=== PATIENT | male | born 1950 | race Caucasian/White ===

== ENCOUNTER 2024-04-03 13:50 | Inpatient (IN) | payer MEDICARE ==
[2024-04-03] MEDS: ACETAMINOPHEN TAB 500 MG TAB PO STA (15:25)
[2024-04-03] MEDS: SODIUM CHLORIDE 0.9% 500 ML 500 ML IV STA (15:38)
--- NOTE | 2024-04-03 15:41 | ED ---
Male Urogenital HPI - General Chief complaint: Urogenital Stated complaint: bleeding from groin Time Seen by Provider: 04/03/24 15:37 Source: patient, family, RN notes reviewed Mode of arrival: wheelchair Limitations: no limitations - History of Present Illness Initial comments: 73-year-old male presenting for right leg infection. States he underwent biopsy of right inguinal lymph nodes as well as right popliteal space at the time of a heel cancer removal surgery. This was performed at [facility]. States since the surgery, he has had increasing pain and redness at the site of biopsy in the right inguinal area. Last night, he noticed bleeding and drainage from the incision site. He also reports subjective chills yesterday. Denies fever, vomiting. History of hypertension, no other health conditions. - Related Data Allergies Allergy/AdvReac Type Severity Reaction Status Date / Time latex Allergy Unknown Verified 04/03/24 13:54 Review of Systems ROS Statement: Those systems with pertinent positive or pertinent negative responses have been documented in the HPI. ROS Other: All systems not noted in ROS Statement are negative. Past Medical History Past Medical History: Hypertension Past Surgical History: Hernia Repair Smoking Status: Never smoker Past Alcohol Use History: Rare Past Drug Use History: None Reported General Exam Limitations: no limitations General appearance: alert, in no apparent distress Right Hip exam: Present: normal inspection, full ROM. Absent: tenderness, swelling Upper Leg exam: Present: full ROM, tenderness, erythema. Absent: normal inspection (Incision site just inferior to right inguinal area is tender with active clear drainage with surrounding erythema and induration), swelling Knee exam: Present: normal inspection, full ROM. Absent: tenderness, swelling Lower Leg exam: Present: normal inspection, full ROM. Absent: tenderness, swelling Ankle exam: Present: normal inspection, full ROM. Absent: tenderness, swelling Foot/Toe exam: Present: normal inspection, full ROM. Absent: tenderness, swelling Neurovascular tendon exam: Present: no vascular compromise. Absent: pulse defic it, abnormal cap refill, sensory deficit Neurological exam: Present: alert, oriented X3 Psychiatric exam: Present: normal affect, normal mood Skin exam: Present: warm, dry, intact, normal color. Absent: rash Course Vital Signs 04/03/24 04/03/24 04/03/24 13:54 15:18 17:19 Temperature 98.1 F 99.2 F 98.9 F Pulse Rate 81 72 75 Respiratory 18 16 17 Rate Blood Pressure 109/71 114/73 119/66 O2 Sat by Pulse 96 95 96 Oximetry 04/03/24 18:27 Temperature 99.1 F Pulse Rate 71 Respiratory 24 Rate Blood Pressure 108/74 O2 Sat by Pulse 94 L Oximetry Medical Decision Making - Medical Decision Making Was pt. sent in by a medical professional or institution (, PA, SUSTAINABILITY DIRECTOR, urgent care, hospital, or skilled nursing...) When possible be specific @ -No Did you speak to anyone other than the patient for history (EMS, parent, family, police, friend...)? What history was obtained from this source @ -No Did you review nursing and triage notes (agree or disagree)? Why? @ -I reviewed and agree with nursing and triage notes Were old charts reviewed (outside hosp., previous admission, EMS record, old EKG, old radiological studies, urgent care reports/EKG's, skilled nursing records)? Report findings @ -No old charts were reviewed Differential Diagnosis (chest pain, altered mental status, abdominal pain women, abdominal pain men, vaginal bleeding, weakness, fever, dyspnea, syncope, headache, dizziness, GI bleed, back pain, seizure, CVA, palpatations, mental health, musculoskeletal)? @ -Differential Musculoskeletal Muscular strain, contusion, ligament sprain, fracture, arthritis, septic arthritis, bursitis, cellulitis, muscle spasm, nerve compression, DVT, arterial occlusion, herpes zoster, electrolyte abnormality, tumor.... This is not meant to be in all inclusive list EKG interpreted by me (3pts min.). @ -None X-rays interpreted by me (1pt min.). @ -None done CT interpreted by me (1pt min.). @ -CT femur reveals no acute osseous abnormality, phlegmon right anterior thigh, no abscess formation at this time U/S interpreted by me (1pt. min.). @ -None done What testing was considered but not performed or refused? (CT, X-rays, U/S, labs)? Why? @ -None What meds were considered but not given or refused? Why? @ -None Did you discuss the management of the patient with other professionals (professionals i.e. , AAMIR, SUSTAINABILITY DIRECTOR, lab, RT, psych nurse, director social service, policy loan calculator, teacher, zoology technical officer, hospice case manager)? Give summary @ -I spoke with Jeanette from [facility] who accepts admission for cellulitis with ID consult Was smoking cessation discussed for >3mins.? @ -No Was critical care preformed (if so, how long)? @ -No Were there social determinants of health that impacted care today? How? (Homelessness, low income, unemployed, alcoholism, drug addiction, transportation, low edu. Level, literacy, decrease access to med. care, detention, rehab)? @ -No Was there de-escalation of care discussed even if they declined (Discuss DNR or withdrawal of care, Hospice)? DNR status @ -No What co-morbidities impacted this encounter? (DM, HTN, Smoking, COPD, CAD, Cancer, CVA, ARF, Chemo, Hep., AIDS, mental health diagnosis, sleep apnea, morbid obesity)? @ -None Was patient admitted / discharged? Hospital course, mention meds given and route, prescriptions, significant lab abnormalities, going to OR and other pertinent info. @ - admitted. 73-year-old male presenting for right leg infection. Patient has been having increased redness, pain, and drainage at site of lymph node biopsy last month. Biopsy was done 12-16. Vital signs are within acceptable limits. Incision site right proximal leg erythematous, tender, with purulent drainage and surrounding erythema. Neurovascularly intact. Patient was provided with IV fluids and Tylenol. Blood cultures taken. Lab work remarkable for leukocytosis of 22, CRP 29. CT right femur negative for acute process. I spoke with Jeanette from [facility] who accepts admission for cellulitis with ID consult. Wound culture was taken and patient was started on IV antibiotics. Case was discussed with my ED attending Dr. Russell. Undiagnosed new problem with uncertain prognosis? @ -No Drug Therapy requiring intensive monitoring for toxicity (Heparin, Nitro, Insulin, Cardizem)? @ -No Were any procedures done? @ -No Diagnosis/symptom? @ -Right leg cellulitis Acute, or Chronic, or Acute on Chronic? @ -Acute Uncomplicated (without systemic symptoms) or Complicated (systemic symptoms)? @ -uncomplicated Side effects of treatment? @ -No Exacerbation, Progression, or Severe Exacerbation? @ -No Poses a threat to life or bodily function? How? (Chest pain, [place], [place], pneumonia, PE, COPD, DKA, ARF, appy, cholecystitis, CVA, Diverticulitis, Homicidal, Suicid al, threat to staff... and all critical care pts) @ -Possibly - Lab Data Result diagrams: 04/03/24 15:30 04/03/24 15:30 Lab Results 04/03/24 04/03/24 04/03/24 Range/Units 15:30 15:30 15:30 WBC 22.1 H (3.8-10.6) k/uL RBC 4.73 (4.30-5.90) m/uL Hgb 14.5 (13.0-17.5) gm/dL Hct 41.5 (39.0-53.0) % MCV 87.8 (80.0-100.0) fL MCH 30.6 (25.0-35.0) pg MCHC 34.9 (31.0-37.0) g/dL RDW 12.3 (11.5-15.5) % Plt Count 271 (150-450) k/uL MPV 8.0 Neutrophils % 86 % Lymphocytes % 7 % Monocytes % 5 % Eosinophils % 0 % Basophils % 0 % Neutrophils # 19.0 H (1.3-7.7) k/uL Lymphocytes # 1.6 (1.0-4.8) k/uL Monocytes # 1.2 H (0-1.0) k/uL Eosinophils # 0.1 (0-0.7) k/uL Basophils # 0.1 (0-0.2) k/uL Sodium 139 (137-145) mmol/L Potassium 3.7 (3.5-5.1) mmol/L Chloride 102 (98-107) mmol/L Carbon Dioxide 28 (22-30) mmol/L Anion Gap 9 mmol/L BUN 28 H (9-20) mg/dL Creatinine 0.91 (0.66-1.25) mg/dL Est GFR (CKD-EPI)AfAm >90 (>60 ml/min/1.73 sqM) Est GFR (CKD-EPI)NonAf 83 (>60 ml/min/1.73 sqM) Glucose 81 (74-99) mg/dL Plasma Lactic Acid Que 1.7 (0.7-2.0) mmol/L Calcium 8.7 (8.4-10.2) mg/dL Total Bilirubin 2.3 H (0.2-1.3) mg/dL AST 32 (17-59) U/L ALT 20 (4-49) U/L Alkaline Phosphatase 87 (38-126) U/L C-Reactive Protein 29.0 H (<1.0) mg/dL Total Protein 6.9 (6.3-8.2) g/dL Albumin 3.9 (3.5-5.0) g/dL Disposition Clinical Impression: Cellulitis of right leg Disposition: ADMITTED IP TO THIS HOSP Referrals: Robel Lewis MD [Primary Care Provider] - 1-2 days Time of Disposition: 19:28
[2024-04-03 16:01] LABS: Basophils # (A) 0.1 k/uL (0-0.2); Basophils % (A) 0 %; Eosinophils # (A) 0.1 k/uL (0-0.7); Eosinophils % (A) 0 %; HCT 41.5 % (39.0-53.0); HGB 14.5 gm/dL (13.0-17.5); Lymphocytes # (A) 1.6 k/uL (1.0-4.8); Lymphocytes % (A) 7 %; MCH 30.6 pg (25.0-35.0); MCHC 34.9 g/dL (31.0-37.0); MCV 87.8 fL (80.0-100.0); Monocytes # (A) 1.2 k/uL (0-1.0); Monocytes % (A) 5 %; Neutrophils % (A) 86 %; Platelet Count 271 k/uL (150-450); RBC 4.73 m/uL (4.30-5.90); RDW 12.3 % (11.5-15.5); WBC 22.1 k/uL (3.8-10.6)
[2024-04-03 16:12] LABS: ALT 20 U/L (4-49); AST 32 U/L (17-59); African American GFR (CKD) >90 (>60 ml/min/1.73 sqM); Albumin 3.9 g/dL (3.5-5.0); Alkaline Phosphatase 87 U/L (38-126); Anion Gap 9 mmol/L; Blood Urea Nitrogen 28 mg/dL (9-20); Calcium 8.7 mg/dL (8.4-10.2); Carbon Dioxide 28 mmol/L (22-30); Chloride 102 mmol/L (98-107); Glucose 81 mg/dL (74-99); Non-African American GFR(CKD) 83 (>60 ml/min/1.73 sqM); Potassium 3.7 mmol/L (3.5-5.1); Sodium 139 mmol/L (137-145); Total Bilirubin 2.3 mg/dL (0.2-1.3); Total Protein 6.9 g/dL (6.3-8.2)
--- NOTE | 2024-04-03 18:36 | CT ---
EXAMINATION TYPE: CT femur RT w con DATE OF EXAM: 04/03/2024 5:49 PM COMPARISON: None. CLINICAL INDICATION: Male, 73 years old with history of abscess, Biopsy done to right groin x 3 weeks ago, recent drainage/infection. TECHNIQUE: Contrast used:100 mL of Isovue 300 with IV Contrast, (none if empty) Oral contrast used: (none if empty) Images were obtained at 3 mm thick sections. Reconstructed images in the coronal and sagittal plane a re reviewed. Three-D reconstructed images performed separate computer are reviewed FINDINGS: There is narrowing of the right hip joint space compatible with moderate degenerative changes. Mild d egenerative changes are at the right knee joint space. No acute fractures or dislocations evident. Periumbilical hernia containing mesenteric fat is evident. The opening is 1.6 cm. Surgical sutures in the bilateral inguinal regions. There are some mildly prominent lymph nodes within the right inguina l region. Increased stranding is within the right inguinal region subcutaneous tissue. There is a sma ll opening along the cutaneous surface anteriorly. No underlying abscess is evident. Phlegmon however is not entirely excluded. IMPRESSION: 1. NO ACUTE OSSEOUS ABNORMALITY RIGHT FEMUR. 2. PHLEGMON RIGHT ANTERIOR THIGH. NO ABSCESS FORMATION IDENTIFIED AT THIS TIME. [facility], , 04/03/2024 6:34 PM
[2024-04-03] MEDS ORDERED: NALOXONE 0.4 MG/ML 1 ML VIAL IV PRN (18:58)
[2024-04-03] MEDS ORDERED: KETOROLAC 15 MG/ML 1 ML VIAL IVP PRN (18:58)
[2024-04-03] MEDS ORDERED: ACETAMINOPHEN TAB 325 MG TAB PO PRN (18:58)
[2024-04-03] MEDS ORDERED: ONDANSETRON 4 MG/2 ML VIAL IVP PRN (18:58)
[2024-04-03] MEDS ORDERED: VANCOMYCIN IV PER PHARMACY 1 EACH MISC MISCELLANE PRN (19:03)
[2024-04-03] MEDS: SODIUM CHLORIDE 0.9% 1,000 ML IV SCH (19:28)
[2024-04-03] MEDS: CEFEPIME 2 GM in SODIUM CHLORIDE 0.9% 100 ML IVPB STA (19:29)
[2024-04-03] MEDS: VANCOMYCIN 1,500 MG in SODIUM CHLORIDE 0.9% 500 ML 500 ML IVPB ONE (20:30)
[2024-04-04 07:36] LABS: African American GFR (CKD) >90 (>60 ml/min/1.73 sqM); Non-African American GFR(CKD) >90 (>60 ml/min/1.73 sqM)
[2024-04-04] MEDS: VANCOMYCIN 1,250 MG in SODIUM CHLORIDE 0.9% 250 ML IVPB SCH (07:59)
--- NOTE | 2024-04-04 14:12 | P.HPIM ---
History of Present Illness H&P Date: 04/04/24 Chief Complaint: Cellulitis of the right leg Patient is a 73-year-old male with hypertension presented with right leg infection. Per ED note, patient recently underwent biopsy of right inguinal lymph nodes as well as right popliteal space at the time of a heel cancer remova l surgery. This was performed at [facility]. Patient was seen at bedside. He reports that he underwent a biopsy of right inguinal lymph node at the time of her heel cancer removal surgery on March 09, 2024. Subsequently started developing swelling, erythema around the right inguinal lymph node which did not get better over the past few weeks. This made the patient to come to [facility] ED for evaluation. Patient did report noticing fever and chills over the past few weeks along with sweating. He also reported drainage from the right leg lesion that started 3 days ago. He also reported some urinary incontinence over the past few weeks but this all resolved today when he came into the hospital. He denies any chest pain, shortness of breath, nausea, vomiting, diarrhea, constipation, belly pain, bowel incontinence, lower extremity swelling. ED documentation reviewed. In the ED patient was treated with Tylenol 1000 mg x 1, half bolus of normal saline, cefepime 2 g IV x 1, vancomycin 1500 mg IV x 1 Vitals on admission temperature 98.8, pulse rate 82, respiratory rate 15, blood pressure 111/61, O2 sat 93% on room air CT of the right femur with contrast shows no acute osseous abnormality of the right femur. Phlegmon noted on the right anterior thigh. No abscess formation identified at this time. Labs on admission show WBC 22.1, hemoglobin 14.5, hematocrit 41.5, platelets 271, neutrophils 19, sodium 139, potassium 3.7, chloride 102, carbon dioxide 28, BUN 28, creatinine 0.69, total bili 2.3, CRP 29 Review of systems: Pertinent positives and negatives as discussed in HPI, a complete review of systems was performed and all other systems are negative. PMH: Hypertension PSH: Hernia repair FMH: No pertinent family history Allergies: Latex Social history: Tobacco: Never smoker Alcohol: No alcohol use Recreational drugs: No drug use Travel: No travel history Sick contacts: No sick contacts Physical examination: Vital signs reviewed General: nontoxic, no distress, appears at stated age Derm: warm, dry, intact Head: atraumatic, normocephalic, symmetric Eyes: EOMI, anicteric sclera Mouth: no lip lesion, mucus membranes moist Cardiovascular: S1 S2 reg, no murmur Lungs: CTA bilateral, no rhonchi, no rales, no accessory muscle use Abdominal: soft, non-tender to palpation Extremities: Lesion noted on right thigh with signs of drainage along with erythema, swelling surrounding the lesion. Also tender to palpation and warm to touch. Neuro: Alert, Gross neurological examination did not reveal any focal deficits. Psych: well appearing, appropriate affect Assessment/Plan: Patient is a 73-year-old male with hypertension presented with right leg infection. Patient will be admitted to internal medicine service. Active: #. Cellulitis of right lower extremity #. Leukocytosis, likely secondary to cellulitis Continue with vancomycin 1250 mg IV every 12 hours and cefepime 2 g IV every 8 hours Pending wound culture result Pending blood culture result WBC 22.1 CRP 29 Monitor morning CBC and BMP Infectious disease consulted by ED Chronic: #. 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 Smoking Status: Never smoker Past Alcohol Use History: Rare Past Drug Use History: None Reported Medications and Allergies Home Medications Medication Instructions Recorded Confirmed Type Acetaminophen Tab [Tylenol Tab] 1,000 mg PO HS 04/03/24 04/03/24 History Ibuprofen [Motrin Ib] 400 mg PO TID PRN 04/03/24 04/03/24 History lisinopriL [Zestril] 20 mg PO DAILY 04/03/24 04/03/24 History Allergies Allergy/AdvReac Type Severity Reaction Status Date / Time latex Allergy Unknown Verified 04/03/24 20:18 Physical Exam Vitals: Vital Signs Temp Pulse Pulse Resp BP BP Pulse Ox 04/04/24 07:00 99.8 F H 82 15 111/61 93 L 04/04/24 02:16 100.2 F H 83 18 121/80 95 04/04/24 00:04 99.0 F 80 17 125/72 97 04/03/24 22:54 74 18 125/70 94 L 04/03/24 18:27 99.1 F 71 24 108/74 94 L 04/03/24 17:19 98.9 F 75 17 119/66 96 04/03/24 15:18 99.2 F 72 16 114/73 95 04/03/24 13:54 98.1 F 81 18 109/71 96 Intake and Output 04/03/24 04/04/24 04/04/24 22:59 06:59 14:59 Intake Total 236 Balance 236 Intake: Oral 236 Other: # Voids 2 # Bowel Movements 1 Weight 88.451 kg Results CBC & Chem 7: 04/03/24 15:30 04/04/24 06:45 Labs: Abnormal Lab Results - Last 24 Hours (Table) 04/03/24 04/03/24 Range/Units 15:30 15:30 WBC 22.1 H (3.8-10.6) k/uL Neutrophils # 19.0 H (1.3-7.7) k/uL Monocytes # 1.2 H (0-1.0) k/uL BUN 28 H (9-20) mg/dL Total Bilirubin 2.3 H (0.2-1.3) mg/dL C-Reactive Protein 29.0 H (<1.0) mg/dL
[2024-04-04] MEDS: CEFEPIME 2 GM in SODIUM CHLORIDE 0.9% 100 ML IVPB SCH (15:13)
[2024-04-04] MEDS: VANCOMYCIN 1,500 MG in SODIUM CHLORIDE 0.9% 500 ML 500 ML IVPB SCH (21:00)
[2024-04-05 05:28] LABS: African American GFR (CKD) >90 (>60 ml/min/1.73 sqM); Anion Gap 6 mmol/L; Blood Urea Nitrogen 18 mg/dL (9-20); Calcium 8.2 mg/dL (8.4-10.2); Carbon Dioxide 27 mmol/L (22-30); Chloride 107 mmol/L (98-107); Glucose 95 mg/dL (74-99); Non-African American GFR(CKD) >90 (>60 ml/min/1.73 sqM); Potassium 3.6 mmol/L (3.5-5.1); Sodium 140 mmol/L (137-145)
--- NOTE | 2024-04-05 07:47 | P.CONS ---
History of Present Illness - Reason for Consult Consult date: 04/04/24 Cellulitis of right leg Requesting physician: Esthela Dominguez - Chief Complaint Right groin pain swelling and redness x 1 day - History of Present Illness Patient is a 73-year-old male with a past medical history significant for metastatic melanoma hypertension patient did have excision of lesion from the right heel that has been diagnosed with a melanoma subsequently the patient has been evaluated at physician at [facility] did have further debridement from the right heel as well as right groin area patient mention his right groin has been swollen since the surgery however the day before presentation to the hospital the patient noticed to have increasing swelling as well as redness to the right groin area and the patient started having some c hills and there was drainage patient has been describing the pain to be mostly dull aching mild to moderate intensity without any radiation did have chills at home did not recall any high-grade fever with this and the patient presented to hospital on arrival to the ER patient initially have a low-grade fever subsequently did have a temperature of 100.2 F at 2 AM patient was not tachycardic hypotensive or hypoxic patient did have a white count of 22.1 with a left shift creatinine 0.91 electrolytes normal liver enzymes are normal CRP is 29 blood culture have been obtained which are currently pending patient did have a CT of the right leg with evidence of phlegmon right anterior thigh and no a bscess formation patient was started on vancomycin admitted to hospital infectious disease was consulted for further management of antibiotic therapy Review of Systems Positive point and negatives has been mentioned in the HPI, complete review of systems was performed and all other systems are negative Past Medical History Past Medical History: Cancer, Hypertension Additional Past Medical History / Comment(s): 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 Smoking Status: Never smoker Past Alcohol Use History: Rare Past Drug Use History: None Reported Medications and Allergies Home Medications Medication Instructions Recorded Confirmed Type Acetaminophen Tab [Tylenol Tab] 1,000 mg PO HS 04/03/24 04/03/24 History Ibuprofen [Motrin Ib] 400 mg PO TID PRN 04/03/24 04/03/24 History lisinopriL [Zestril] 20 mg PO DAILY 04/03/24 04/03/24 History Allergies Allergy/AdvReac Type Severity Reaction Status Date / Time latex Allergy Unknown Verified 04/03/24 20:18 Physical Exam Vitals: Vital Signs Temp Pulse Pulse Resp BP BP Pulse Ox 04/04/24 07:00 99.8 F H 82 15 111/61 93 L 04/04/24 02:16 100.2 F H 83 18 121/80 95 04/04/24 00:04 99.0 F 80 17 125/72 97 04/03/24 22:54 74 18 125/70 94 L 04/03/24 18:27 99.1 F 71 24 108/74 94 L 04/03/24 17:19 98.9 F 75 17 119/66 96 04/03/24 15:18 99.2 F 72 16 114/73 95 04/03/24 13:54 98.1 F 81 18 109/71 96 Intake and Output 04/03/24 04/04/24 04/04/24 22:59 06:59 14:59 Intake Total 236 Balance 236 Intake: Oral 236 Other: Voiding Method Toilet # Voids 2 1 # Bowel Movements 1 1 Weight 88.451 kg GENERAL DESCRIPTION: Elderly male lying in bed, no distress. No tachypnea or accessory muscle of respiration use. HEENT: Shows Pallor , no scleral icterus. Oral mucous membrane is dry. NECK: Trachea central, no thyromegaly. LUNGS: Unlabored breathing. Clear to auscultation anteriorly. No wheeze or crackle. HEART: S1, S2, regular rate and rhythm. No loud murmur ABDOMEN: Soft, no tenderness , guarding or rigidity, no organomegaly EXTREMITIES: Right groin did have areas of induration swelling redness and some drainage was cultured he did have wound on the right heel area which looks clean with no slough tissue or surrounding redness SKIN: No rash, no masses palpable. NEUROLOGICAL: The patient is awake, alert, oriented x3, mood and affect normal. Results CBC & Chem 7: 04/03/24 15:30 04/05/24 04:50 Labs: Abnormal Lab Results - Last 24 Hours (Table) 04/03/24 04/03/24 Range/Units 15:30 15:30 WBC 22.1 H (3.8-10.6) k/uL Neutrophils # 19.0 H (1.3-7.7) k/uL Monocytes # 1.2 H (0-1.0) k/uL BUN 28 H (9-20) mg/dL Total Bilirubin 2.3 H (0.2-1.3) mg/dL C-Reactive Protein 29.0 H (<1.0) mg/dL Assessment and Plan (1) Sepsis Current Visit: Yes Status: Acute Code(s): A41.9 - SEPSIS, UNSPECIFIED ORGANISM SNOMED Code(s): 43853496 (2) Open wound of right heel Current Visit: Yes Status: Acute Code(s): S91.301A - UNSPECIFIED OPEN WOUND, RIGHT FOOT, INITIAL ENCOUNTER SNOMED Code(s): 199738196 (3) Cellulitis of right leg Current Visit: Yes Status: Acute Code(s): L03.115 - CELLULITIS OF RIGHT LOWER LIMB SNOMED Code(s): 58298675363656447 Plan: 1patient presented to hospital with sepsis in this patient who did have fever elevated white count meeting criteria for SIRS source is right groin abscess in this patient who recently did have surgery done at [facility] and will need to cover for resistant gram-positive as well as gram-negative pathogen 2even though CT did not mention any abscess clinically concern is for right groin abscess and may benefit from a surgical evaluation for possible drainage and washout 3local culture have been obtained that will guide further antibiotic therapy 4local wound care to the right heel with Aquacel silver dressing change q. 48- hour and dry ABD to the right avoiding changes needed 5vancomycin pharmacy to dose target trough of 15 while watching kidney function and Vanco trough closely we will add cefepime to cover for the gram- negative coverage while waiting for the culture to finalize We will follow on clinical condition and cultures to further adjust medication if needed Thank you for this consultation we will follow the patient along with you Dictation was produced using [employer] dictation software. please excuse any grammatical, word or spelling errors. Time with Patient: Greater than 30
[2024-04-05] MEDS: lisinopriL 10 MG TAB PO SCH (08:42)
[2024-04-05] MEDS: ENOXAPARIN 40 MG/0.4 ML SYRINGE SQ SCH (08:42)
[2024-04-05 09:28] LABS: Basophils # (A) 0.05 X 10*3/uL (0.00-0.10); Basophils % (A) 0.6 %; Eosinophils # (A) 0.13 X 10*3/uL (0.04-0.35); Eosinophils % (A) 1.6 %; HCT 37.7 % (39.6-50.0); HGB 12.6 g/dL (13.0-17.0); Lymphocytes # (A) 1.82 X 10*3/uL (0.90-5.00); Lymphocytes % (A) 22.8 %; MCH 29.7 pg (27.0-32.0); MCHC 33.4 g/dL (32.0-37.0); MCV 88.9 FL (80.0-97.0); Mean Platelet Volume 10.9 FL (9.5-12.2); Monocytes % (A) 7.5 %; NRBC Per 100 WBC 0 X 10*3/uL (0.00-0.01); Neutrophils # (A) 5.33 X 10*3/uL (1.80-7.70); Platelet Count 260 X 10*3/uL (140-440); RBC 4.24 X 10*6/uL (4.40-5.60); RDW 12.1 % (11.5-14.5); WBC 7.97 X 10*3/uL (4.50-10.00)
--- NOTE | 2024-04-05 14:03 | P.PN ---
Subjective Patient is a 73-year-old male with hypertension presented with right leg infection. Per ED note, patient recently underwent biopsy of right inguinal lymph nodes as well as right popliteal space at the time of a heel cancer removal surgery. This was performed at [facility]. Patient was seen at bedside. He reports that he underwent a biopsy of right inguinal lymph node at the time of her heel cancer removal surgery on March 09, 2024. Subsequently started developing swelling, erythema around the right inguinal lymph node which did not get better over the past few weeks. This made the patient to come to the ED for evaluation. Patient did report noticing fever and chills over the past few weeks along with sweating. He also reported drainage from the right leg lesion that started 3 days ago. He also reported some urina ry incontinence over the past few weeks but this all resolved today when he came into the hospital. He denies any chest pain, shortness of breath, nausea, vomiting, diarrhea, constipation, belly pain, bowel incontinence, lower extremity swelling. ED documentation reviewed. In the ED patient was treated with Tylenol 1000 mg x 1, half bolus of normal saline, cefepime 2 g IV x 1, vancomycin 1500 mg IV x 1 Vitals on admission temperature 98.8, pulse rate 82, respiratory rate 15, blood pressure 111/61, O2 sat 93% on room air CT of the right femur with contrast shows no acute osseous abnormality of the right femur. Phlegmon noted on the right anterior thigh. No abscess formation identified at this time. Labs on admission show WBC 22.1, hemoglobin 14.5, hematocrit 41.5, platelets 271, neutrophils 19, sodium 139, potassium 3.7, chloride 102, carbon dioxide 28, BUN 28, creatinine 0.69, total bili 2.3, CRP 29 04/05 Patient says his right thigh cellulitis near the groin is improving Wound cultures growing presumptive MRSA Remains on IV vancomycin Creatinine normal at 0.7 Objective - Vital Signs Vital signs: Vital Signs Temp 98.8 F 04/05/24 07:00 Pulse 70 04/05/24 07:00 Resp 16 04/05/24 07:00 BP 144/77 04/05/24 07:00 Pulse Ox 95 04/05/24 07:00 FiO2 Intake & Output 04/04/24 04/05/24 04/05/24 18:59 06:59 18:59 Intake Total 236 Output Total 350 Balance 236 -350 Intake: Oral 236 Output: Urine 350 Other: Voiding Method Toilet Toilet Toilet # Voids 1 1 # Bowel Movements 1 1 - Labs CBC & Chem 7: 04/05/24 04:50 04/05/24 04:50 Labs: Abnormal Lab Results - Last 24 Hours (Table) 04/05/24 04/05/24 Range/Units 04:50 04:50 RBC 4.24 L (4.40-5.60) X 10*6/uL Hgb 12.6 L (13.0-17.0) g/dL Hct 37.7 L (39.6-50.0) % Calcium 8.2 L (8.4-10.2) mg/dL Microbiology - Last 24 Hours (Table) 04/03/24 19:30 Gram Stain - Preliminary Leg - Right Wound Culture - Preliminary Presumptive Staph aureus 04/03/24 15:30 Blood Culture - Preliminary Blood 04/03/24 15:30 Blood Culture - Preliminary Blood Assessment and Plan Assessment: Assessment/Plan: Patient is a 73-year-old male with hypertension presented with right leg infection. Patient will be admitted to internal medicine service. Plan: Active: #. Cellulitis of right lower extremity #. Leukocytosis, likely secondary to cellulitis Continue with IV vancomycin Pending blood culture result WBC 22.1 CRP 29 Monitor morning CBC and BMP Infectious disease consulted by ED Wound cultures growing presumptive MRSA Chronic: #. Hypertension Reduce lisinopril to 10 mg daily starting tomorrow F: No restrictions E: Replete as needed N: Heart healthy diet A: Wheelchair DVT prophylaxis: Lovenox 40 mg subcu daily The patient is admitted with an anticipated less than 2 midnight stay for evaluation of right lower extremity cellulitis CODE STATUS: Full code Discussed with: Patient and family Anticipated discharge place: Home
--- NOTE | 2024-04-05 15:04 | P.PN ---
Subjective Progress Note Date: 04/05/24 Principal diagnosis: Reason for follow-up is right groin abscess cellulitis Patient is a 73-year-old male with a past medical history significant for metastatic melanoma hypertension with recent intervention to the right heel and groin area at [facility] now presenting the hospital with right groin pain swelling redness has been diagnosed with right groin cellulitis concerning for possible abscess. On today's evaluation that is 04/05/2024, Patient is afebrile patient is currently on room air and denies having any shortness of breath, the patient denies any chest pain or cough, the patient denies any nausea vomiting did not have any abdominal pain and no diarrhea patient mention decreasing pain to the right groin and drainage has decreased. Patient white count normalized to 7.97, creatinine 0.75 culture currently growing Staph aureus Objective - Vital Signs Vital signs: Vital Signs Temp 98.8 F 04/05/24 07:00 Pulse 70 04/05/24 07:00 Resp 16 04/05/24 07:00 BP 144/77 04/05/24 07:00 Pulse Ox 95 04/05/24 07:00 FiO2 Intake & Output 04/04/24 04/05/24 04/05/24 18:59 06:59 18:59 Intake Total 236 Output Total 350 Balance 236 -350 Intake: Oral 236 Output: Urine 350 Other: Voiding Method Toilet Toilet Toilet # Voids 1 1 # Bowel Movements 1 1 - Exam GENERAL DESCRIPTION: An elderly male lying in bed in no distress RESPIRATORY SYSTEM: Unlabored breathing , decreased breath sounds at bases HEART: S1 S2 regular rate and rhythm , ABDOMEN: Soft , no tenderness EXTREMITIES: Right groin swelling induration has decreased - Labs CBC & Chem 7: 04/05/24 04:50 04/05/24 04:50 Labs: Abnormal Lab Results - Last 24 Hours (Table) 04/05/24 04/05/24 Range/Units 04:50 04:50 RBC 4.24 L (4.40-5.60) X 10*6/uL Hgb 12.6 L (13.0-17.0) g/dL Hct 37.7 L (39.6-50.0) % Calcium 8.2 L (8.4-10.2) mg/dL Microbiology - Last 24 Hours (Table) 04/03/24 19:30 Gram Stain - Preliminary Leg - Right Wound Culture - Preliminary Presumptive Staph aureus 04/03/24 15:30 Blood Culture - Preliminary Blood 04/03/24 15:30 Blood Culture - Preliminary Blood Assessment and Plan (1) Sepsis Current Visit: Yes Status: Acute Code(s): A41.9 - SEPSIS, UNSPECIFIED ORGANISM SNOMED Code(s): 55577195 (2) Open wound of right heel Current Visit: Yes Status: Acute Code(s): S91.301A - UNSPECIFIED OPEN WOUND, RIGHT FOOT, INITIAL ENCOUNTER SNOMED Code(s): 159230962 (3) Cellulitis of right leg Current Visit: Yes Status: Acute Code(s): L03.115 - CELLULITIS OF RIGHT LOWER LIMB SNOMED Code(s): 24681602158637379 Plan: 1patient presented to hospital with sepsis in this patient who did have fever elevated white count meeting criteria for SIRS source is right groin abscess in this patient who recently [facility] and will need to cover for resistant gram-positive as well as gram-negative pathogen 2patient did have CT did not mention any abscess 3local culture have been obtained that are currently growing Staph aureus with sensitivities pending 4local wound care to the right heel with Aquacel silver dressing change q. 48- hour and dry ABD to the right avoiding changes needed 5patient to be treated with vancomycin pharmacy to dose target trough of 15 and cefepime while waiting for the culture to finalize Question concern answered Dictation was produced using [employer] dictation software. please excuse any grammatical, word or spelling errors. Time with Patient: Less than 30
[2024-04-06 07:16] LABS: African American GFR (CKD) >90 (>60 ml/min/1.73 sqM); Anion Gap 5 mmol/L; Blood Urea Nitrogen 15 mg/dL (9-20); Calcium 8.6 mg/dL (8.4-10.2); Carbon Dioxide 28 mmol/L (22-30); Chloride 106 mmol/L (98-107); Glucose 91 mg/dL (74-99); Non-African American GFR(CKD) 90 (>60 ml/min/1.73 sqM); Potassium 3.5 mmol/L (3.5-5.1); Sodium 139 mmol/L (137-145)
[2024-04-06] MEDS: VANCOMYCIN TROUGH DUE 1 EACH MISC MISCELLANE ONE (08:45)
--- NOTE | 2024-04-06 09:01 | P.PN ---
Subjective Progress Note Date: 04/06/24 This is a 73-year-old male who presented to the emergency department with complaints of right leg infection. Recently patient had a right inguinal lymph node biopsy at the [facility] and since then patient has developed redness, warmth and drainage at this site. Patient does report a history of fever and chills. He remains on cefepime and vancomycin while cultures are waiting to be finalized. Patient is seen this morning sitting on the side of the bed. He reports he is feeling much better, denies any further fevers or chills. Patient reports swelling and redness has also improved. Vital signs are stable. Objective - Vital Signs Vital signs: Vital Signs Temp 98.5 F 04/06/24 07:00 Pulse 66 04/06/24 07:00 Resp 19 04/06/24 07:00 BP 144/80 04/06/24 07:00 Pulse Ox 95 04/06/24 07:00 FiO2 Intake & Output 04/05/24 04/06/24 04/06/24 18:59 06:59 18:59 Intake Total 240 840 Output Total 700 Balance 240 140 Intake: Intake, IV Titration 600 Amount Cefepime 2 gm In Sodium 100 Chloride 0.9% 100 ml @ 25 mls/hr IVPB Q8HR STEFF Rx# :[id number] Vancomycin 1,500 mg In 500 Sodium Chloride 0.9% 500 ml 500 ml @ 167 mls/hr IVPB Q12H STEFF Rx#: [id number] Oral 240 240 Output: Urine 700 Other: Voiding Method Toilet Toilet # Voids 3 2 - Constitutional General appearance: Present: cooperative, no acute distress - EENT Eyes: Present: PERRLA - Neck Neck: Present: normal ROM. Absent: lymphadenopathy, rigidity - Respiratory Respiratory: bilateral: CTA - Cardiovascular Rhythm: regular Heart sounds: normal: S1, S2 - Gastrointestinal General gastrointestinal: Present: soft. Absent: tenderness - Integumentary Integumentary Comment(s): redness to right groin - Psychiatric Psychiatric: Present: A&O x's 3, appropriate affect, intact judgment & insight - Labs CBC & Chem 7: 04/05/24 04:50 04/06/24 06:29 Labs: Abnormal Lab Results - Last 24 Hours (Table) 04/05/24 Range/Units 04:50 RBC 4.24 L (4.40-5.60) X 10*6/uL Hgb 12.6 L (13.0-17.0) g/dL Hct 37.7 L (39.6-50.0) % Microbiology - Last 24 Hours (Table) 04/03/24 19:30 Gram Stain - Final Leg - Right Wound Culture - Final Staphylococcus aureus 04/03/24 15:30 Blood Culture - Preliminary Blood 04/03/24 15:30 Blood Culture - Preliminary Blood 04/04/24 13:00 Gram Stain - Preliminary Groin Wound Culture - Preliminary Presumptive Staph aureus Assessment and Plan (1) Cellulitis of right leg Current Visit: Yes Status: Acute Code(s): L03.115 - CELLULITIS OF RIGHT LOWER LIMB SNOMED Code(s): 37708139784717377 (2) Hypertension Current Visit: Yes Status: Acute Code(s): I10 - ESSENTIAL (PRIMARY) HYPERTENSION SNOMED Code(s): 53589425 Plan: Await for cultures to finalize and recommendations for discharge antibiotics from infectious disease. Patient seen and evaluated by nurse practitioner, physician in agreement with plan.
--- NOTE | 2024-04-06 16:12 | P.GSCN ---
History of Present Illness Consult date: 04/06/24 History of present illness: CHIEF COMPLAINT: Right groin cellulitis HISTORY OF PRESENT ILLNESS: This is a 73-year-old male who had a lymph node biopsy from the right groin at [facility] on March 09. Patient reports that since then he has had some redness and swelling in that right groin with drainage from the incision site. The area has been painful. He has been having chills and sweats. He did not have a low-grade temp on admission. CT scan of that right thigh had shown a phlegmon in the right thigh no abscess. White count admission was 22. He is on antibiotics. Patient has history of melanoma on the right heel status post surgery. PAST MEDICAL HISTORY: See below PAST SURGICAL HISTORY: See below MEDICATIONS: See below ALLERGIES: See below SOCIAL HISTORY: No illicit drug use. REVIEW OF SYSTEMS: CONSTITUTIONAL: Denies fever or chills. HEENT: Denies blurred vision, vision changes, or eye pain. Denies hemoptysis CARDIOVASCULAR: Denies chest pain or pressure. RESPIRATORY: No shortness of breath. GASTROINTESTINAL: See HPI for pertinent findings HEMATOLOGIC: Denies bleeding disorders. GENITOURINARY: Denies any blood in urine or increased urinary frequency. SKIN: Denies pruitis. Denies rash. PHYSICAL EXAM: VITAL SIGNS: Reviewed GENERAL: Well-developed in no acute distress. ABDOMEN: Soft. Nondistended. Nontender NEUROLOGIC: Alert and oriented. Cranial nerves II through XII grossly intact. Extremities: Right groin with induration cellulitis changes and drainage from the incision site. Incision site is about 2 cm in length. Patient also has some mild erythema swelling in the hamstring and back of the knee area LABORATORY DATA: WBC 22 down to 7.97 hemoglobin 12.6 platelets 260 Sodium 139 potassium 3.5 creatinine 0.78 IMAGING: CT scan reports no acute osseous abnormality right femur. Phlegmon right anterior thigh. No abscess formation identified at this time ASSESSMENT: 1. Right groin cellulitis and induration. The area is draining. CT scan reports no abscess. PLAN: -No surgical intervention planned at this time -Continue antibiotics per infectious disease -Cellulitis area was marked with pen Physician Recruitment Director note has been reviewed by physician. Signing provider agrees with the documented findings, assessment, and plan of care. Past Medical History Past Medical History: Cancer, Hypertension Additional Past Medical History / Comment(s): 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 Smoking Status: Never smoker Past Alcohol Use History: Rare Past Drug Use History: None Reported Medications and Allergies Home Medications Medication Instructions Recorded Confirmed Type Acetaminophen Tab [Tylenol Tab] 1,000 mg PO HS 04/03/24 04/03/24 History Ibuprofen [Motrin Ib] 400 mg PO TID PRN 04/03/24 04/03/24 History lisinopriL [Zestril] 20 mg PO DAILY 04/03/24 04/03/24 History Allergies Allergy/AdvReac Type Severity Reaction Status Date / Time latex Allergy Unknown Verified 04/03/24 20:18 Surgical - Exam Vital Signs Temp Pulse Resp BP Pulse Ox 98.1 F 81 18 109/71 96 04/03/24 13:54 04/03/24 13:54 04/03/24 13:54 04/03/24 13:54 04/03/24 13:54 Results - Labs 04/05/24 04:50 04/06/24 06:29 Microbiology - Last 24 Hours (Table) 04/03/24 19:30 Gram Stain - Final Leg - Right Wound Culture - Final Staphylococcus aureus 04/03/24 15:30 Blood Culture - Preliminary Blood 04/03/24 15:30 Blood Culture - Preliminary Blood 04/04/24 13:00 Gram Stain - Preliminary Groin Wound Culture - Preliminary Presumptive Staph aureus Diabetes panel 04/06/24 Range/Units 06:29 Sodium 139 (137-145) mmol/L Potassium 3.5 (3.5-5.1) mmol/L Chloride 106 (98-107) mmol/L Carbon Dioxide 28 (22-30) mmol/L BUN 15 (9-20) mg/dL Creatinine 0.78 (0.66-1.25) mg/dL Glucose 91 (74-99) mg/dL Calcium 8.6 (8.4-10.2) mg/dL Calcium panel 04/06/24 Range/Units 06:29 Calcium 8.6 (8.4-10.2) mg/dL Pituitary panel 04/06/24 Range/Units 06:29 Sodium 139 (137-145) mmol/L Potassium 3.5 (3.5-5.1) mmol/L Chloride 106 (98-107) mmol/L Carbon Dioxide 28 (22-30) mmol/L BUN 15 (9-20) mg/dL Creatinine 0.78 (0.66-1.25) mg/dL Glucose 91 (74-99) mg/dL Calcium 8.6 (8.4-10.2) mg/dL Adrenal panel 04/06/24 Range/Units 06:29 Sodium 139 (137-145) mmol/L Potassium 3.5 (3.5-5.1) mmol/L Chloride 106 (98-107) mmol/L Carbon Dioxide 28 (22-30) mmol/L BUN 15 (9-20) mg/dL Creatinine 0.78 (0.66-1.25) mg/dL Glucose 91 (74-99) mg/dL Calcium 8.6 (8.4-10.2) mg/dL
--- NOTE | 2024-04-07 08:48 | P.DS ---
Providers Date of admission: 04/06/24 08:03 Attending physician: Robel Lewis Consults: 04/03/24 18:58 Consult Physician Urgent Consulting Provider: Lynda Shine Consult Reason/Comments: Cellulitis right leg Do you want consulting provider notified?: Yes 04/06/24 13:50 Consult Physician Routine Consulting Provider: Eduin Branham Consult Reason/Comments: right groin abcess, ?I & D Do you want consulting provider notified?: Already Contacted Primary care physician: Robel Lewis - Discharge Diagnosis(es) (1) Cellulitis of right leg Current Visit: Yes Status: Acute (2) Hypertension Current Visit: Yes Status: Acute Hospital Course: This is a 73-year-old male who presented to the emergency department with complaints of right leg infection. Recently patient had a right inguinal lymph node biopsy at the [facility] and since then patient has developed redness, warmth and drainage at this site. He did have fever and chills at home. Patient seen and evaluated by general surgery who are not planning any surgical interventions. Redness has greatly improved today as well as swelling has decreased. Patient continues to be afebrile. Cultures have finalized shows Staph aureus and infectious disease has recommended cefazolin for discharge antibiotics. Patient had a midline placed yesterday for home IV antibiotics. Patient may be discharged home when cleared by infectious disease and antibiotics for discharge have been arranged. Patient seen and evaluated by nurse practitioner, physician in agreement with plan. Patient Condition at Discharge: Fair Plan - Discharge Summary New Discharge Prescriptions: Continue lisinopriL [Zestril] 20 mg PO DAILY Ibuprofen [Motrin Ib] 400 mg PO TID PRN PRN Reason: Pain Acetaminophen Tab [Tylenol] 1,000 mg PO HS Discharge Medication List Acetaminophen Tab [Tylenol] 1,000 mg PO HS 04/03/24 [History] Ibuprofen [Motrin Ib] 400 mg PO TID PRN 04/03/24 [History] lisinopriL [Zestril] 20 mg PO DAILY 04/03/24 [History] Follow up Appointment(s)/Referral(s): Robel Lewis MD [Primary Care Provider] - 1 Week Discharge Disposition: HOME SELF-CARE
[2024-04-07 09:05] LABS: Blood Urea Nitrogen 13.6 mg/dL (9.0-27.0); Glucose 91 mg/dL (70-110)
[2024-04-07 09:06] LABS: ALT 35 U/L (10-49); AST 35 U/L (14-35); Albumin 3.3 g/dL (3.8-4.9); Albumin/Globulin Ratio 1.38 Ratio (1.60-3.17); Alkaline Phosphatase 76 U/L (41-126); Calcium 8.9 mg/dL (8.7-10.3); Carbon Dioxide 29.2 mmol/L (21.6-31.8); Chloride 105 mmol/L (96-109); Globulin 2.4 g/dL (1.6-3.3); Potassium 4.5 mmol/L (3.5-5.5); Sodium 141 mmol/L (135-145); Total Bilirubin 0.5 mg/dL (0.3-1.2); Total Protein 5.7 g/dL (6.2-8.2)
--- NOTE | 2024-04-07 09:26 | P.PN ---
Subjective Progress Note Date: 04/06/24 Principal diagnosis: Reason for follow-up is right groin abscess cellulitis Patient is a 73-year-old male with a past medical history significant for metastatic melanoma hypertension with recent intervention to the right heel and groin area at [facility] now presenting the hospital with right groin pain swelling redness has been diagnosed with right groin cellulitis concerning for possible abscess. On today's evaluation that is 04/06/2023, patient has been afebrile, patient is breathing comfortably and is currently on room air, patient denies having any significant cough no chest pain, patient denies nausea vomiting or diarrhea and no abdominal pain pain to the right groin has decreased intensity no more drainage. Patient did have a creatinine 0.78 no CBC was done today culture finalized with MSSA Objective - Vital Signs Vital signs: Vital Signs Temp 98.5 F 04/06/24 07:00 Pulse 66 04/06/24 07:00 Resp 19 04/06/24 07:00 BP 144/80 04/06/24 07:00 Pulse Ox 95 04/06/24 07:00 FiO2 Intake & Output 04/05/24 04/06/24 04/06/24 18:59 06:59 18:59 Intake Total 240 840 537 Output Total 700 Balance 240 140 537 Intake: Intake, IV Titration 600 Amount Cefepime 2 gm In Sodium 100 Chloride 0.9% 100 ml @ 25 mls/hr IVPB Q8HR STEFF Rx# :[id number] Vancomycin 1,500 mg In 500 Sodium Chloride 0.9% 500 ml 500 ml @ 167 mls/hr IVPB Q12H STEFF Rx#: [id number] Oral 240 240 537 Output: Urine 700 Other: Voiding Method Toilet Toilet # Voids 3 2 - Exam GENERAL DESCRIPTION: An elderly male lying in bed in no distress RESPIRATORY SYSTEM: Unlabored breathing , decreased breath sounds at bases HEART: S1 S2 regular rate and rhythm , ABDOMEN: Soft , no tenderness EXTREMITIES: Right groin swelling induration has decreased - Labs CBC & Chem 7: 04/05/24 04:50 04/07/24 05:19 Labs: Microbiology - Last 24 Hours (Table) 04/03/24 19:30 Gram Stain - Final Leg - Right Wound Culture - Final Staphylococcus aureus 04/03/24 15:30 Blood Culture - Preliminary Blood 04/03/24 15:30 Blood Culture - Preliminary Blood 04/04/24 13:00 Gram Stain - Preliminary Groin Wound Culture - Preliminary Presumptive Staph aureus Assessment and Plan (1) Sepsis Current Visit: Yes Status: Acute Code(s): A41.9 - SEPSIS, UNSPECIFIED ORGANISM SNOMED Code(s): 86422058 (2) Open wound of right heel Current Visit: Yes Status: Acute Code(s): S91.301A - UNSPECIFIED OPEN WOUND, RIGHT FOOT, INITIAL ENCOUNTER SNOMED Code(s): 611826247 (3) Cellulitis of right leg Current Visit: Yes Status: Acute Code(s): L03.115 - CELLULITIS OF RIGHT LOWER LIMB SNOMED Code(s): 66718983197460664 Plan: 1patient presented to hospital with sepsis in this patient who did have fever elevated white count meeting criteria for SIRS source is right groin abscess in this patient who recently did have surgery done at [facility] and will need to cover for resistant gram-positive as well as gram-negative pathogen 2patient did have CT did not mention any abscess 3local culture have been obtained that are currently growing MSSA 4local wound care to the right heel with Aquacel silver dressing change q. 48- hour and dry ABD to the right avoiding changes needed 5I will discontinue vancomycin and cefepime and start the patient on cefazolin 2 g every 8 hours still have significant induration to the right groin area and may benefit from a short course of IV cefazolin on discharge this were discussed with the nursing staff to obtain a midline and arrange for outpatient IV antibiotics, we will wait for the general surgery evaluation Dictation was produced using [employer] dictation software. please excuse any grammatical, word or spelling errors. Time with Patient: Less than 30
[2024-04-07 10:18] LABS: HCT 36.1 % (39.6-50.0); HGB 12.3 g/dL (13.0-17.0); MCH 30.1 pg (27.0-32.0); MCHC 34.1 g/dL (32.0-37.0); MCV 88.3 FL (80.0-97.0); Mean Platelet Volume 10.1 FL (9.5-12.2); NRBC Per 100 WBC 0 X 10*3/uL (0.00-0.01); Platelet Count 290 X 10*3/uL (140-440); RBC 4.09 X 10*6/uL (4.40-5.60); RDW 11.8 % (11.5-14.5); WBC 7.18 X 10*3/uL (4.50-10.00)
--- NOTE | 2024-04-07 13:36 | P.PN ---
Subjective Progress Note Date: 04/07/24 Principal diagnosis: Reason for follow-up is right groin abscess cellulitis Patient is a 73-year-old male with a past medical history significant for metastatic melanoma hypertension with recent intervention to the right heel and groin area at [facility] now presenting the hospital with right groin pain swelling redness has been diagnosed with right groin cellulitis concerning for possible abscess. On today's evaluation that is 04/07/2023, Patient is afebrile this morning patient denies having any chest pain shortness of breath or cough, the patient i s currently on room air, patient denies any abdominal pain no diarrhea no nausea no vomiting patient pain to the right groin has decreased intensity patient did not feel comfortable going home on IV antibiotics and wants to the hospital for another day or 2 Patient white count 7.18, creatinine 0.8 local culture growing MSSA and out of culture so far negative blood culture negative Objective - Vital Signs Vital signs: Vital Signs Temp 98.4 F 04/07/24 07:00 Pulse 68 04/07/24 07:00 Resp 15 04/07/24 07:00 BP 131/76 04/07/24 07:00 Pulse Ox 95 04/07/24 07:00 FiO2 Intake & Output 04/06/24 04/07/24 04/07/24 18:59 06:59 18:59 Intake Total 1009 410 118 Output Total 300 Balance 1009 110 118 Intake: Intake, IV Titration 170 Amount Sodium Chloride 0.9% 1, 120 000 ml @ 75 mls/hr IV . [id number] [facility] Rx#:[id number] ceFAZolin 2 gm In Sodium 50 Chloride 0.9% 50 ml @ 100 mls/hr IVPB Q8HR [facility] Rx# :[id number] Oral 1009 240 118 Output: Urine 300 Other: Voiding Method Toilet # Voids 1 1 - Exam GENERAL DESCRIPTION: An elderly male lying in bed in no distress RESPIRATORY SYSTEM: Unlabored breathing , decreased breath sounds at bases HEART: S1 S2 regular rate and rhythm , ABDOMEN: Soft , no tenderness EXTREMITIES: Right groin swelling induration has decreased - Labs CBC & Chem 7: 04/07/24 05:19 04/07/24 05:19 Labs: Abnormal Lab Results - Last 24 Hours (Table) 04/07/24 Range/Units 05:19 Total Protein 5.7 L (6.2-8.2) g/dL Albumin 3.3 L (3.8-4.9) g/dL Albumin/Globulin Ratio 1.38 L (1.60-3.17) Ratio Microbiology - Last 24 Hours (Table) 04/04/24 13:00 Anaerobic Culture - Preliminary Groin 04/03/24 15:30 Blood Culture - Preliminary Blood 04/03/24 15:30 Blood Culture - Preliminary Blood 04/04/24 13:00 Gram Stain - Final Groin Wound Culture - Final Staphylococcus aureus Assessment and Plan (1) Sepsis Current Visit: Yes Status: Acute Code(s): A41.9 - SEPSIS, UNSPECIFIED ORGANISM SNOMED Code(s): 84522879 (2) Open wound of right heel Current Visit: Yes Status: Acute Code(s): S91.301A - UNSPECIFIED OPEN WOUND, RIGHT FOOT, INITIAL ENCOUNTER SNOMED Code(s): 529677548 (3) Cellulitis of right leg Current Visit: Yes Status: Acute Code(s): L03.115 - CELLULITIS OF RIGHT LOWER LIMB SNOMED Code(s): 95062264420837327 Plan: 1patient presented to hospital with sepsis in this patient who did have fever elevated white count meeting criteria for SIRS source is right groin abscess in this patient who recently did have surgery done at [facility] and will need to cover for resistant gram-positive as well as gram-negative pathogen 2patient did have CT did not mention any abscess 3local culture have been obtained that are currently growing MSSA, anaerobic culture have been negative so far 4local wound care to the right heel with Aquacel silver dressing change q. 48- hour and dry ABD to the right avoiding changes needed 5patient to continue with cefazolin 2 g every 8 hours mention did not feel comfortable doing IV antibiotics at home but would rather go to the infusion clinic we will suggest a 7-day course of Rocephin 2 g daily on discharge and close outpatient follow-up multiple question answered Dictation was produced using Mine[employer] dictation software. please excuse any grammatical, word or spelling errors. Time with Patient: Less than 30
[2024-04-07 14:01] VITALS: RESP 16
--- NOTE | 2024-04-07 14:31 | P.PN ---
Subjective Progress Note Date: 04/07/24 SURGICAL PROGRESS NOTE CHIEF COMPLAINT: Right groin cellulitis HISTORY OF PRESENT ILLNESS: Patient is area of cellulitis and induration has decreased since yesterday. He is having a small amount of drainage. Overall pain is improving. Swelling in the lower leg is also improving. Infectious disease and was arranging outpatient IV antibiotics. Afebrile. WBC 7.18 Patient seen and examined with Dr. Branham PHYSICAL EXAM: VITAL SIGNS: Reviewed. GENERAL: Well-developed in no acute distress. Extremities right groin decreased induration and erythema. Small amount of yellowish drainage. ASSESSMENT: 1. Right groin cellulitis and induration. Showing improvement. The area is draining. CT scan reports no abscess. 2. 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 Signing provider agrees with the documented findings, assessment, and plan of care. Objective - Vital Signs Vital signs: Vital Signs Temp 98.4 F 04/07/24 14:01 Pulse 74 04/07/24 14:01 Resp 16 04/07/24 14:01 BP 134/77 04/07/24 14:01 Pulse Ox 97 04/07/24 14:01 FiO2 Intake & Output 04/06/24 04/07/24 04/07/24 18:59 06:59 18:59 Intake Total 1009 410 358 Output Total 300 Balance 1009 110 358 Intake: Intake, IV Titration 170 Amount Sodium Chloride 0.9% 1, 120 000 ml @ 75 mls/hr IV . [id number] [facility] Rx#:[id number] ceFAZolin 2 gm In Sodium 50 Chloride 0.9% 50 ml @ 100 mls/hr IVPB Q8HR [facility] Rx# :[id number] Oral 1009 240 358 Output: Urine 300 Other: Voiding Method Toilet # Voids 1 1 4 # Bowel Movements 1 - Labs CBC & Chem 7: 04/07/24 05:19 04/07/24 05:19 Labs: Abnormal Lab Results - Last 24 Hours (Table) 04/07/24 04/07/24 Range/Units 05:19 05:19 RBC 4.09 L (4.40-5.60) X 10*6/uL Hgb 12.3 L (13.0-17.0) g/dL Hct 36.1 L (39.6-50.0) % Total Protein 5.7 L (6.2-8.2) g/dL Albumin 3.3 L (3.8-4.9) g/dL Albumin/Globulin Ratio 1.38 L (1.60-3.17) Ratio Microbiology - Last 24 Hours (Table) 04/04/24 13:00 Anaerobic Culture - Preliminary Groin 04/03/24 15:30 Blood Culture - Preliminary Blood 04/03/24 15:30 Blood Culture - Preliminary Blood 04/04/24 13:00 Gram Stain - Final Groin Wound Culture - Final Staphylococcus aureus
[2024-04-08 07:49] VITALS: BP 108/69; PULSE 68; TEMP 98.4
--- NOTE | 2024-04-08 11:58 | CDI ---
Documentation Clarification Form Date: 04/08/2024 11:27:16 AM From: Kylah Aguilar RN, CCDS Phone: [phone] Admit Date: 04/06/2024 08:03:00 AM Patient Name: Aaron Hutchinson Visit Number: [id number] Discharge Date: ATTENTION: The Clinical Documentation Specialists (CDI) and [facility] Coding Staff appreciate your assistance in clarifying documentation. Please respond to the clarification below the line at the bottom and electronically sign. The CDI & [facility] Coding staff will review the response and follow-up if needed. Please note: Queries are made part of the Legal Health Record. If you have any questions, please contact the author of this message via ITS. Doctor. Robel Lewis Sepsis is documented in the ID consult and ongoing progress starting on 04/04/24 which may lack sufficient clinical evidence/support in the medical record. Additional clarification is requested. History/Risk Factors: Hypertension Cancer Clinical Indicators: 73-year-old presenting for right leg infection. States he underwent biopsy of right inguinal lymph nodes as well as right popliteal space---Bleeding and drainage from incision site. Present ED 04/03 VS: 109/71 81 18 96% RA; labs: WBC 22.1, Neutrophils 19.0, BUN 28, CR0.91, Admit 04/06 VS: 144/80 66 19 98.5, 95% RA, 04/[address] No ac Abn. Right femur, phlegmon Right anterior thigh. No abscess formation at this time 04/04 ID: Sepsis in this patient who did have fever elevated white count meeting criteria for SIRS source is right groin abscess in this patient who recently did have surgery done at [facility]. Treatment: Rocephin G GM IVPB Q 24 HRS Vancomycin HCl 1,500 MG IVPB (PTD) Please clarify if sepsis is a valid diagnosis? [ ] No, sepsis is ruled out, treated for cellulitis [ ] Yes, sepsis is present as evidence by (additional clinical support): [ x ] Other (please specify diagnosis) SIRS [ ] Unable to determine (Template Last Revised: August 2023) MTDD
--- NOTE | 2024-04-08 13:22 | P.PN ---
Subjective Progress Note Date: 04/08/24 SURGICAL PROGRESS NOTE CHIEF COMPLAINT: Right groin cellulitis HISTORY OF PRESENT ILLNESS: Patient continues to feel better. The cellulitis in the right groin is improving. Patient reports that he is to be discharged today. He will be on IV antibiotics outpatient. Afebrile. PHYSICAL EXAM: VITAL SIGNS: Reviewed. GENERAL: Well-developed in no acute distress. Extremities right groin decreased induration and erythema. Small amount of serosanguineous drainage on bandage ASSESSMENT: 1. Right groin cellulitis and induration improving 2. 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 Signing provider agrees with the documented findings, assessment, and plan of care. Objective - Vital Signs Vital signs: Vital Signs Temp 98.4 F 04/08/24 07:00 Pulse 68 04/08/24 07:00 Resp 16 04/08/24 08:00 BP 108/69 04/08/24 07:00 Pulse Ox 95 04/08/24 07:00 FiO2 Intake & Output 04/07/24 04/08/24 04/08/24 18:59 06:59 18:59 Intake Total 594 240 Balance 594 240 Intake: Oral 594 240 Other: Voiding Method Toilet Toilet # Voids 4 3 # Bowel Movements 1 - Labs CBC & Chem 7: 04/07/24 05:19 04/07/24 05:19
--- NOTE | 2024-04-14 13:35 | P.PN ---
Subjective Progress Note Date: 04/08/24 Principal diagnosis: Reason for follow-up is right groin abscess cellulitis Patient is a 73-year-old male with a past medical history significant for metastatic melanoma hypertension with recent intervention to the right heel and groin area at [facility] now presenting the hospital with right groin pain swelling redness has been diagnosed with right groin cellulitis concerning for possible abscess. On today's evaluation that is 04/08/2023, Patient has been afebrile, patient denies having any chest pain shortness of breath or cough and breathing comfor tably on room air, patient denies any abdominal pain no diarrhea no nausea no vomiting, pain and drainage of the right groin has decreased intensity Patient white count 7.18, creatinine 0.8 local culture growing MSSA Objective - Vital Signs Vital signs: Vital Signs Temp 98.4 F 04/08/24 07:00 Pulse 68 04/08/24 07:00 Resp 16 04/08/24 07:00 BP 108/69 04/08/24 07:00 Pulse Ox 95 04/08/24 07:00 FiO2 Intake & Output 04/07/24 04/08/24 04/08/24 18:59 06:59 18:59 Intake Total 594 Balance 594 Intake: Oral 594 Other: Voiding Method Toilet # Voids 4 3 # Bowel Movements 1 - Exam GENERAL DESCRIPTION: An elderly male lying in bed in no distress RESPIRATORY SYSTEM: Unlabored breathing , decreased breath sounds at bases HEART: S1 S2 regular rate and rhythm , ABDOMEN: Soft , no tenderness EXTREMITIES: Right groin swelling induration has decreased - Labs CBC & Chem 7: 04/07/24 05:19 04/07/24 05:19 Labs: Abnormal Lab Results - Last 24 Hours (Table) 04/07/24 04/07/24 Range/Units 05:19 05:19 RBC 4.09 L (4.40-5.60) X 10*6/uL Hgb 12.3 L (13.0-17.0) g/dL Hct 36.1 L (39.6-50.0) % Total Protein 5.7 L (6.2-8.2) g/dL Albumin 3.3 L (3.8-4.9) g/dL Albumin/Globulin Ratio 1.38 L (1.60-3.17) Ratio Assessment and Plan (1) Sepsis Status: Acute Code(s): A41.9 - SEPSIS, UNSPECIFIED ORGANISM SNOMED Code(s): 46040848 (2) Open wound of right heel Status: Acute Code(s): S91.301A - UNSPECIFIED OPEN WOUND, RIGHT FOOT, INITIAL ENCOUNTER SNOMED Code(s): 735240623 (3) Cellulitis of right leg Status: Acute Code(s): L03.115 - CELLULITIS OF RIGHT LOWER LIMB SNOMED Code(s): 04646063811903072 Plan: 1patient presented to hospital with sepsis in this patient who did have fever elevated white count meeting criteria for SIRS source is right groin abscess in this patient who recently did have surgery done at [facility] and will need to cover for resistant gram-positive as well as gram-negative pathogen 2patient did have CT did not mention any abscess 3local culture have been obtained that are currently growing MSSA, anaerobic culture have been negative so far 4local wound care to the right heel with Aquacel silver dressing change q. 48- hour and dry ABD to the right avoiding changes needed 5patient will be advised a 7-day course of Rocephin 2 g daily in the outpatient infusion clinic and close outpatient follow-up prescription sent to the clinic Dictation was produced using [employer] dictation software. please excuse any grammatical, word or spelling errors. Time with Patient: Less than 30
== END 2024-04-08 14:30 | disposition home or self-care (01) | DRG 863 ==
LOC: EC 13:50 → 6NMEDSUR 21:22 → OBSVTOIN 04-06 08:03
PROVIDERS: ADMIT Family Medicine; ATTEND Family Medicine
PROC: 05H933Z Insertion of Infusion Device into Right Brachial Vein, Percutaneous Approach (ICD-10-PCS; principal; 2024-04-06 20:20)
DX: T81.49XA Infection following a procedure, other surgical site, initial encounter (principal); I89.8 Other specified noninfective disorders of lymphatic vessels and lymph nodes; I10 Essential (primary) hypertension; L03.115 Cellulitis of right lower limb; L03.314 Cellulitis of groin; R65.10 Systemic inflammatory response syndrome (SIRS) of non-infectious origin without acute organ dysfunction; S91.301A Unspecified open wound, right foot, initial encounter; Z91.040 Latex allergy status; Z85.820 Personal history of malignant melanoma of skin
CPT/HCPCS: 36410; 36415; 76937; 80048; 80053; 80202; 82565; 83605; 85025; 85027; 86140; 87040; 87070; 87075; 87077; 87186; 87205; 96361; 96365; 96366; 96367; 99285

== ENCOUNTER → 2024-06-16 | Outpatient (CLI) | payer MEDICARE ==
--- NOTE | 2024-06-16 13:49 | US ---
EXAMINATION TYPE: US venous doppler duplex LE RT DATE OF EXAM: 06/16/2024 1:37 PM COMPARISON: CT right femur 04/03/2024 CLINICAL INDICATION: Male, 73 years old with history of R22.41 LOCALIZED SWELLING, MASS AND LUMP, RIG HT LO; Dependant RLE swelling x 1-2 weeks. Right groin lymph node biopsy with cellulitis in february and heel melanoma removal , Pain TECHNIQUE: The lower extremity deep venous system is examined utilizing real time linear array sonog hunter with graded compression, color doppler sonography, and spectral doppler. SIDE PERFORMED: Right FINDINGS: VESSELS IMAGED: Common Femoral Vein Deep Femoral Vein Greater Saphenous Vein * Femoral Vein Popliteal Vein Small Saphenous Vein * Proximal Calf Veins (* superficial vessels) Mildly enlarged right groin lymph node measuring 1.7 x 0.9 x 2.0 cm with central fatty hilum. Biopsy tract extending towards the right greater saphenous vein. No definitive organized fluid collection. Right Leg: Negative for DVT, Color Doppler imaging shows patency of the vessels. Spectral waveforms are within normal limits. IMPRESSION: 1. No evidence of deep vein thrombosis of the right lower extremity. 2. Nonspecific enlarged right inguinal lymph node. 3. Biopsy tract that extends towards the greater saphenous vein. No definitive organized fluid colle ction. [facility], , 06/16/2024 1:47 PM
== END | disposition home or self-care (01) ==
LOC: RADUSWWP 13:19
PROVIDERS: ATTEND Internal Medicine Hematology & Oncology
DX: R22.41 Localized swelling, mass and lump, right lower limb (principal)

== ENCOUNTER → 2024-06-17 | Outpatient (CLI) | payer MEDICARE ==
--- NOTE | 2024-06-17 15:29 | MR ---
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 COMPARISON: None. TECHNIQUE: Multi planar, multi sequence imaging was performed through the brain. The patient was then given 10 cc of Gadavist intravenously and multi planar, T1 fat-saturation images were obtained. FINDINGS: The jones-white junctions, ventricular system, basal cisterns appear unremarkable. Age-appropriate cer ebral parenchymal volume. Diffusion-weighted imaging shows no evidence of restricted diffusion to sug gest acute/subacute infarct. Intracranial arterial flow voids are maintained. Midline structures show no abnormality. Few scattered foci of high T2/FLAIR signal intensity are seen within the supratentor ial subcortical white matter. The susceptibility weighted images do not reveal any evidence for micro -hemorrhage. Incidental prominent enhancing developmental venous anomaly within the right cerebellum with large draining vein. After administration of gadolinium, no suspicious enhancing lesion identifi ed. The bone marrow signal is within normal limits. The globes are unremarkable. Minimal mucosal thicken ing of the ethmoid sinuses. IMPRESSION: 1. No evidence of acute/subacute infarct or suspicious enhancing mass. 2. Prominent right cerebellum developmental venous anomaly. 3. Nonspecific minimal white matter changes, likely related to small vessel ischemic disease. [facility], , 06/17/2024 3:26 PM
== END | disposition home or self-care (01) ==
LOC: RADMRIMAIN 13:40
PROVIDERS: ATTEND Internal Medicine Hematology & Oncology
DX: C43.9 Malignant melanoma of skin, unspecified (principal); G93.89 Other specified disorders of brain; R90.82 White matter disease, unspecified
CPT/HCPCS: 70553; A9585

== ENCOUNTER → 2024-06-25 | Outpatient (CLI) | payer MEDICARE ==
--- NOTE | 2024-06-28 10:28 | PE ---
EXAMINATION TYPE: PET CT fusion whole body DATE OF EXAM: 06/25/2024 CLINICAL INDICATION:Male, 73 years old with history of C43.8 Melanoma; TECHNIQUE: Following the intravenous administration of 11.49 mCi of F-18 FDG, whole body images are performed from the skull base to the Feet. Images are reviewed on the computer in the coronal, axia l, and sagittal planes. Reconstructed rotating images are created on independent workstation and rev iewed on the computer. A non-contrast CT is performed in conjunction with the PET scan. Glucose lev el 88 mg/dL CT DLP: 1031 mGycm, Automated exposure control for dose reduction was used. COMPARISON: CT 04/03/2022, PET/CT None, MRI: None FINDINGS: Mediastinal SUV mean is 1.7. Hepatic parenchyma SUV mean is 2.3. SKULL BASE AND NECK: No suspicious radiotracer activity. Left thyroid nodule Max SUV 12.2. CHEST, MEDIASTINUM, AND HILAR REGION: No suspicious radiotracer activity. ABDOMEN AND PELVIS: No suspicious radiotracer activity. MUSCULOSKELETAL STRUCTURES: No suspicious radiotracer activity. Small focus of subchondral cystic within the left femoral lateral condyle max SUV 3.9 Postprocedural changes to the right inguinal region max SUV 2.2 right inguinal lymph node max SUV 3.1 measuring 9 mm in short axis. OTHER CT: Bilateral aphakia. Atherosclerosis of the arterial breasts which are including the coronary arteries. Mild valve calcifications. Cholelithiasis. Fat-containing umbilical hernia. Scattered colo anayeli diverticula. Prostatomegaly. IMPRESSION: 1. Right inguinal region postprocedural changes changes with prominent lymph node measuring up to 9 mm short axis. If this is the area of prior melanoma, this area should be closely monitored. 2. FDG avid left thyroid nodule further evaluation with thyroid ultrasound should be performed if no t recently performed. 3. [facility], , 06/28/2024 10:25 AM
== END | disposition home or self-care (01) ==
LOC: RADPETMAIN 15:47
PROVIDERS: ATTEND Internal Medicine Hematology & Oncology
DX: C43.8 Malignant melanoma of overlapping sites of skin (principal); E04.1 Nontoxic single thyroid nodule; K80.20 Calculus of gallbladder without cholecystitis without obstruction; H27.03 Aphakia, bilateral; Z98.890 Other specified postprocedural states
CPT/HCPCS: 78816; A9552

== ENCOUNTER → 2024-07-07 | Outpatient (CLI) | payer MEDICARE ==
--- NOTE | 2024-07-07 15:51 | US ---
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 FINDINGS: GLAND SIZE: Right Lobe: 5.0 x 1.5 x 1.8 cm Overall Parenchyma: Slightly heterogeneous Left Lobe: 5.2 x 1.6 x 1.7 cm Overall Parenchyma: Slightly heterogeneous Isthmus Thickness: 0.3 cm NODULES RIGHT: # of nodules measured on right: A tiny 4 mm colloid cyst is noted at the midpole. LEFT: # of nodules measured on left: 0 ISTHMUS: # of nodules measured in the isthmus: 0 Bilateral neck scanned, no evidence of lymphadenopathy. IMPRESSION: 1. Borderline to mild thyromegaly. There is a solitary tiny 4 mm benign colloid cyst on the right. 2. The potential abnormal left thyroid lobe nodule seen on 06/25/2024 PET/CT is not appreciated on the present exam. Recommend 2-3 month follow-up ultrasound as follow-up and to exclude any enlarging nodu les. Alternatively, follow-up with contrast-enhanced CT may be considered as well. [facility], , 07/07/2024 3:49 PM
== END | disposition home or self-care (01) ==
LOC: RADUSWWP 14:46
PROVIDERS: ATTEND Internal Medicine Hematology & Oncology
DX: C43.9 Malignant melanoma of skin, unspecified (principal); I10 Essential (primary) hypertension; E01.0 Iodine-deficiency related diffuse (endemic) goiter; Z71.3 Dietary counseling and surveillance
CPT/HCPCS: 76536